=== PATIENT | female | born 2000 | race Two or more races ===

== ENCOUNTER 2025-09-02 21:07 | Emergency (ER) | payer MEDICAID, SELFPAY ==
[2025-09-02 21:09] VITALS: BMI 33.6
[2025-09-02 21:22] VITALS: BP 129/89; PULSE 102; RESP 18; TEMP 36.9; O2SAT 98
--- NOTE | 2025-09-02 21:32 | XR_ITS ---
EXAMINATION: Lumbar spine 2 views TECHNIQUE: AP lateral lumbar spine 2 views Date and time: September 02, 2025, 11:03 p.m. INDICATION: Lower back pain 3 days FINDINGS: Satisfactory alignment lumbar vertebral bodies No lumbar fracture. No significant lumbar disc narrowing IMPRESSION: No lumbar fracture No significant lumbar disc narrowing
--- NOTE | 2025-09-02 21:32 | XR_ITS ---
Examination: Pelvic ultrasound, transabdominal, complete Technique: Transabdominal ultrasound of the pelvis performed using grayscale imaging Date and time of exam: September 02, 2025, 0936 hours INDICATIONS: Intermittent pelvic pain beginning 4 days ago FINDINGS: Uterus 7.6 cm endometrial stripe 0.4 cm No uterine mass or intrauterine gestation Right ovary 3.1 cm arterial flow, 19 x 17 mm follicular cyst Left ovary 3.9 cm arterial flow 23 x 20 mm follicular cyst IMPRESSION: No uterine mass or intrauterine gestation
--- NOTE | 2025-09-02 21:33 | PD.EDRME ---
Rapid Medical Screening Exam RME Arrival date/time: 09/02/25 21:07 This is a case of 25-year-old female who came in in the emergency room due to lower back pain and pelvic pain radiating to the left lateral lower extremities for 3 days worsening of the symptoms this patient decided to start consulted in the emergency room Chief Complaint: Back Pain/Injury Time Seen by Provider: 09/02/25 21:21 Vital signs: Vital Signs Temperature 98.4 F 09/02/25 21:22 Pulse Rate 102 H 09/02/25 21:22 Respiratory Rate 18 09/02/25 21:22 Blood Pressure 129/89 H 09/02/25 21:22 Pulse Oximetry (%) 98 09/02/25 21:22 Oxygen Delivery Method Room Air 09/02/25 21:22 Exam: Moderate tenderness left pelvic area and lumbar area Clinical Impression: Pelvic pain lower back pain
[2025-09-02 22:09] LABS: Basophils # (Auto) 0.1 Thou/mm3 (0.0-0.2); Basophils % (Auto) 1 % (0-2.5); Eosinophils # (Auto) 0.1 Thou/mm3 (0.0-0.5); Eosinophils % (Auto) 1 % (0-10); Hematocrit 39.3 % (36.0-46.0); Hemoglobin 13.1 g/dL (12.0-16.0); Immature Granulocytes Auto 0.05 Thou/mm3 (0.00-0.00); Lymphocytes # (Auto) 3.7 Thou/mm3 (1.0-4.8); Lymphocytes % (Auto) 34 % (10-50); Mean Corpuscular HGB Conc 33.3 g/dl (31.0-37.0); Mean Corpuscular Hemoglobin 27.6 pg (25.0-35.0); Mean Corpuscular Volume 83 fL (80-100); Monocytes # (Auto) 0.5 Thou/mm3 (0.0-0.8); Monocytes % (Auto) 5 % (0-12); Neutrophils # (Auto) 6.3 Thou/mm3 (1.8-7.7); Neutrophils % (Auto) 59 % (37-80); Nucleated Red Blood Cell # 0.00 Thou/mm3 (0.00-0.00); Nucleated Red Blood Cell % 0 /100 WBC (0); Platelet Count 331 Thou/mm3 (140-440); RDW Standard Deviation 38.3 fL (36.4-46.3); Red Blood Count 4.74 Miln/mm3 (4.00-5.20); White Blood Count 10.7 Thou/mm3 (3.6-11.0)
[2025-09-02 22:27] LABS: Alanine Aminotransferase 14 U/L (10-49); Albumin, Serum 4.5 gm/dL (3.5-5.0); Albumin/Globulin Ratio 1.5 (1.2-2.2); Alkaline Phosphatase 76 U/L (46-116); Anion Gap 10 (7-16); Aspartate Amino Transferase 18 U/L (0-34); BUN/Creatinine Ratio 15 Ratio (12-20); Bilirubin,Total 0.3 mg/dL (0.3-1.2); Blood Urea Nitrogen 9 mg/dL (9-23); Calcium 9.4 mg/dL (8.3-10.6); Calcium (Corrected) 9.4 mg/dL (8.5-10.1); Carbon Dioxide 25.5 mMol/L (20.0-31.0); Chloride 106 mMol/L (98-107); Creatinine (Component) 0.6 mg/dL (0.6-1.3); Estimated Creatinine Clearance 149.1 mL/min (>60); Globulin 3.0 gm/dL (2.3-3.5); Glucose 99 mg/dL (74-106); Osmolality,Calculated 279 (275-295); Potassium 3.6 mMol/L (3.4-5.1); Sodium 141 mMol/L (136-145); Total Protein 7.5 gm/dL (5.7-8.2); eGFR > 60 See Note
[2025-09-02 22:39] LABS: Collection Type, Urine Voided
[2025-09-02 22:49] LABS: Bilirubin,Urine Negative (Negative); Blood,Urine 1+ (Negative); Clarity,Urine Clear (Clear/Hazy); Color,Urine Lt-Yellow (Lt Yel-Yel); Glucose, Urine Negative (Negative); HCG Qualitative,Urine Negative; Ketones,Urine Negative (Negative); Leukocyte Esterase,Urine Positive (Negative); Nitrite,Urine Negative (Negative); PH,Urine 6.0 (5.0-7.0); Protein,Urine Negative (Neg - Trace); RBC,Urine 3 /hpf (0-3); Specific Gravity,Urine 1.023 (1.001-1.035); Squamous Epithelial Cell,Urine 5 /hpf (0-5); Urobilinogen,Urine Negative mg/dL (0.0-1.0); WBC,Urine 18 /hpf (0-5)
[2025-09-02 22:51] VITALS: BP 123/82; PULSE 90; RESP 16; TEMP 36.8; O2SAT 97
--- NOTE | 2025-09-02 23:18 | PD.EDABDPN ---
ED Abdominal Pain RME/HPI General Chief Complaint: Abdominal Pain Stated complaint: LOW L BACK PAIN Time seen by provider: 09/02/25 21:21 Arrival date/time: 09/02/25 21:07 RME / HPI RME / HPI narrative: 09/02/25 21:07 This is a case of 25-year-old female who came in in the emergency room due to lower back pain and pelvic pain radiating to the left lateral lower extremities for 3 days worsening of the symptoms this patient decided to start consulted in the emergency room Dr. Matos?s Main ED Evaluation: 25yo female presents to the ED for a chief complaint of pelvic pain x today. No radiation or migration. Patient reports being evaluated by an SANITARY ENGINEERING TEACHER in the past due to having similar pain, but no longer has follow-up due to the SANITARY ENGINEERING TEACHER being out of area. Patient finished her menses on Tuesday. Patient normally take ibuprofen for pain control, but states it did not improve her pain tonight, so she came in for evaluation. Patient denies any fever, chills, N/V, or any other associated symptoms. NKA. Related Data Home Medications ?Medication ?Instructions ?Recorded ?Confirmed cefuroxime axetil 500 mg tablet 500 mg PO BID 01/31/24 01/31/24 hydrocodone 5 mg-acetaminophen 325 1 tab PO Q6H PRN Pain 01/31/24 01/31/24 mg tablet ibuprofen 800 mg tablet 800 mg PO Q8H PRN Pain 01/31/24 01/31/24 Previous Rx's ?Medication ?Instructions ?Recorded acetaminophen 300 mg-codeine 15 mg 1 tab PO Q12H PRN pain #20 tabs 02/01/24 tablet azithromycin 1 gram oral packet 1 g PO .ONCE #1 ea 02/01/24 (Zithromax) acetaminophen 300 mg-codeine 30 mg 1 tab PO BID PRN pain #10 tabs 03/11/24 tablet ondansetron 4 mg disintegrating 4 mg PO Q8H #14 tabs 03/11/24 tablet ibuprofen 800 mg tablet 800 mg PO TID PRN pain #30 tabs 07/13/24 peg 3350-electrolytes 236 240 ml PO Q10M #4,000 mL 07/13/24 gram-22.74 gram-6.74 gram-5.86 gram solution (Golytely) Allergies Allergy/AdvReac Type Severity Reaction Status Date / Time No Known Allergies Allergy Verified 09/02/25 21:13 Review of Systems Review of Systems Systems Reviewed: All systems reviewed, normal except as documented Past Medical History Past Medical History NEUROLOGIC: Negative Neurological Disorders or Seizures CARDIAC: Negative Cardiac Disorders, Congestive Heart Failure, Edema, Cellulitis or Varicose Veins RESPIRATORY: Negative Chronic Obstructive Pulmonary Disease (COPD), Asthma, Tuberculosis, Pulmonary Embolism or Sleep Apnea GASTROINTESTINAL: Positive Gastrointestinal Disorders and Obesity; Negative Hepatitis or Colorectal Cancer GENITOURINARY: Negative Genitourinary Disorders, Renal Disease or Prostate Cancer REPRODUCTIVE: Positive Previous Pregnancies; Negative Breast Cancer, Genital Herpes, Gonorrhea, Pelvic Inflammatory Disease, Syphilis or Testicular Cancer MUSCULOSKELETAL: Negative Musculoskeletal Disorders or Bone Cancer ENDOCRINE: Positive Diabetes Mellitus Type 2; Negative Endocrine Disorders or Diabetes Mellitus Type 1 HEMATOLOGIC: Negative Blood Disorders, Anemia, Leukemia, Hemophilia, Thalassemia, Sickle Cell Disease or Clotting Problems PSYCHO/SOCIAL: Negative Bipolar Disorder, Depression, Anxiety, Depression or Post Traumatic Stress Disorder OTHER HISTORY: Positive Hospitalization; Negative Autoimmune Disease, Down Syndrome, Developmental Delay, Shingles, Falls, Blood Transfusions, Blood Transfusion Reaction, Anesthesia Reactions, Organ Transplant, Chemotherapy, Radiation Therapy, Hyperbaric Therapy, MRSA, VRSA, Vancomycin-Resistant Enterococci, Human Immunodeficiency Virus (HIV), Chicken Pox, Measles, Mumps, Rubella (Citizen Of [place] Measles), Pertussis, Clostridium Difficile, Cancer, Breast Cancer, Cervical Cancer, Colorectal Cancer, Lung Cancer, Ovarian Cancer, Prostate Cancer or Testicular Cancer Family History FAMILY HISTORY: Negative Family Psychiatric Problems, Family Respiratory Disorders, Family Cardiac Disorders, Family Gastrointestinal Problems, Family Cancer, Family Surgery or Family Anesthesia Reaction Surgical History SURGICAL: Negative Pacemaker, Endocrine Surgery, Ear Surgery, Abdominal Surgery, Joint Replacement, Neurologic Surgery, Mastectomy, Section or Organ Transplant Social History SMOKING STATUS: Never smoker SECOND HAND EXPOSURE: No ED Exam Narrative Physical exam: Generally patient is alert and in no obvious distress, heart regular rate and rhythm, lungs clear to auscultation equal bilaterally, abdomen soft bowel sounds present nondistended suprapubic abdominal tenderness without rebound. Course Quality Measures none Orders Category Date Time Status US pelvic complete Stat Exams 09/02/25 21:32 Completed XR lumbar spine 2-3V Stat Exams 09/02/25 21:32 Taken CBC Stat Lab 09/02/25 21:54 Completed CMP [Comprehensive Metabolic Panel] Stat Lab 09/02/25 21:54 Completed HCG Qualitative,Urine Stat Lab 09/02/25 22:28 Completed Urinalysis Stat Lab 09/02/25 22:28 Completed Vital Signs Vital signs: Vital Signs Temperature 98.4 F 09/02/25 21:22 Pulse Rate 102 H 09/02/25 21:22 Respiratory Rate 18 09/02/25 21:22 Blood Pressure 129/89 H 09/02/25 21:22 Pulse Oximetry (%) 98 09/02/25 21:22 Oxygen Delivery Method Room Air 09/02/25 21:22 Abdominal Pain MDM MDM Narrative MDM Narrative:: Scribe Attestation: 09/02/25 - Sagrario Hoang am scribing for and in the presence of Dr. Matos. I interpreted all labs. Urine showed no evidence of infection. is negative. Pelvic ultrasound was unremarkable. Patient has been taking ibuprofen at home for pain. She may also take Tylenol. Patient data External records reviewed:: [facility] previous records (Per chart review, patient was seen here on 07/13/24 for abdominal pain.) Clinical information provided by:: patient Social determinants that could affect healthcare access:: none Patient has the following chronic illnesses:: DM How is presenting disease/condition affected by chronic disease/condition?: uneffected by Evaluation data The following diagnostics were reviewed and interpreted by me:: lab results and radiology exam(s) Lab and/or radiology exams considered but not ordered:: none Interpretation Summary: [facility] Report Signed Patient: DIANNA ELIAS Record#: [id number] Birthdate: 2000 Age/Sex: 25 / F Location: [facility] Attending Dr: Ordering Physician: Johnathan Simpson Date of Service: 09/02/25 Procedure(s): US pelvic complete Accession Number(s): [id number] cc: Cal Mcneal MD; Johnathan Simpson~ Examination: Pelvic ultrasound, transabdominal, complete Technique: Transabdominal ultrasound of the pelvis performed using grayscale imaging Date and time of exam: September 02, 2025, 0936 hours INDICATIONS: Intermittent pelvic pain beginning 4 days ago FINDINGS: Uterus 7.6 cm endometrial stripe 0.4 cm No uterine mass or intrauterine gestation Right ovary 3.1 cm arterial flow, 19 x 17 mm follicular cyst Left ovary 3.9 cm arterial flow 23 x 20 mm follicular cyst IMPRESSION: No uterine mass or intrauterine gestation Dictated By: Cal Mcneal MD Signed By: <Electronically signed by Cal Mcneal MD in OV> 09/02/25 2200 Medications / Prescriptions Medications or Prescriptions considered but not ordered:: none Medication administrations:: see above Consultations Consultation(s) initiated? (list below): No Diagnosis Differential diagnosis abdominal pain: other (See MDM) Most likely diagnosis given after review of the tests above:: see clinical impression below Admission Indicated Admission indicated?: not indicated Admission Request Was there a request for admission?: No Disposition Plan Disposition Plan: Discharge Discharge Attestation Discharge Attestation: The patient and all family members were given an opportunity to ask questions and understood the discharge instructions. Discharge instructions specifically effects, indications for sooner follow up or return to the emergency department, and the expected course of current diagnosis. Patient condition: Stable Discharge Plan Plan Patient Disposition: HOME (Self Care) Prescriptions/Referrals Prescriptions/Med Rec: No Action peg 3350-electrolytes [Golytely] 236-22.74-6.74 -5.86 gram recon soln 240 ml PO Q10M Qty: 4000 0RF Rx Instructions: until fecal effluent is clear ibuprofen 800 mg tablet 800 mg PO TID PRN (Reason: pain) Qty: 30 0RF ibuprofen 800 mg Tablet 800 mg PO Q8H PRN (Reason: Pain) hydrocodone-acetaminophen [[place]] 5-325 mg Tablet 1 tab PO Q6H PRN (Reason: Pain) cefuroxime axetil 500 mg Tablet 500 mg PO BID azithromycin [Zithromax] 1 gram packet 1 g PO .ONCE Qty: 1 0RF acetaminophen-codeine 300-15 mg tablet 1 tab PO Q12H PRN (Reason: pain) Qty: 20 0RF acetaminophen-codeine 300-30 mg tablet 1 tab PO BID PRN (Reason: pain) Qty: 10 0RF ondansetron 4 mg tablet,disintegrating 4 mg PO Q8H Qty: 14 0RF Referrals: Quinn Servin PA-C [Primary Care Provider] - In 1 week Problem List Clinical Impression: Pelvic pain Patient/Caregiver Discharge Instructions Education Materials: ED Pelvic Pain, Unknown Cause Additional Instructions: You may take 650 mg of Tylenol every 4 hours as needed for pain and 800 mg of ibuprofen every 8 hours as needed for pain. Follow-up with your SANITARY ENGINEERING TEACHER physician. Print Language: Nepali Stand Alone Forms: [employer] Award Info., Patient Portal Info Letter
[2025-09-02 23:32] VITALS: BP 123/82; PULSE 88; RESP 18; O2SAT 96
[2025-09-02] MEDS: KETOROLAC INJ 60 MG/2 ML VIAL IM (23:38)
[2025-09-03 00:01] VITALS: BP 105/79; PULSE 87; RESP 20; O2SAT 97
== END 2025-09-03 00:03 | disposition home or self-care (01) ==
PROVIDERS: Nurse Practitioner Family; Emergency Provider Emergency Medicine
DX: R10.22 Pelvic and perineal pain left side (principal); M54.50 Low back pain, unspecified
CPT/HCPCS: 36415; 72100; 76856; 80053; 81001; 81025; 85025; 96372; 99283; J1885

== ENCOUNTER 2025-09-08 20:39 | Emergency (ER) | payer MEDICAID, SELFPAY ==
[2025-09-08 20:42] VITALS: PULSE 110; O2SAT 100; BMI 33.6
[2025-09-08 20:48] VITALS: BP 138/102; PULSE 102; RESP 15; TEMP 36.8; O2SAT 98
--- NOTE | 2025-09-08 21:18 | PD.EDABDPN ---
ED Abdominal Pain RME/HPI General Chief Complaint: Abdominal Pain Stated complaint: ABD PAIN Time seen by provider: 09/08/25 21:24 Arrival date/time: 09/08/25 20:39 Limitations: no limitations RME / HPI RME / HPI narrative: Dr. Santiago's Main ED Evaluation: 25yo female [place] from home presents to the ED for a chief complaint of lower abdominal pain. Patient was seen here last week for the same complaint, reporting her pain has progressively gotten worse. Patient was seen at a facility in [place], had a CT scan done, and was told she had a cyst . Patient states her pain worsened today, so she came in for evaluation. Patient denies any fever, chills, or any other associated symptoms. NKA. Related Data Home Medications ?Medication ?Instructions ?Recorded ?Confirmed cefuroxime axetil 500 mg tablet 500 mg PO BID 01/31/24 01/31/24 hydrocodone 5 mg-acetaminophen 325 1 tab PO Q6H PRN Pain 01/31/24 01/31/24 mg tablet ibuprofen 800 mg tablet 800 mg PO Q8H PRN Pain 01/31/24 01/31/24 Previous Rx's ?Medication ?Instructions ?Recorded acetaminophen 300 mg-codeine 15 mg 1 tab PO Q12H PRN pain #20 tabs 02/01/24 tablet azithromycin 1 gram oral packet 1 g PO .ONCE #1 ea 02/01/24 (Zithromax) acetaminophen 300 mg-codeine 30 mg 1 tab PO BID PRN pain #10 tabs 03/11/24 tablet ondansetron 4 mg disintegrating 4 mg PO Q8H #14 tabs 03/11/24 tablet ibuprofen 800 mg tablet 800 mg PO TID PRN pain #30 tabs 07/13/24 peg 3350-electrolytes 236 240 ml PO Q10M #4,000 mL 07/13/24 gram-22.74 gram-6.74 gram-5.86 gram solution (Golytely) hydrocodone 5 mg-acetaminophen 325 1 tab PO Q8H PRN pain #14 tabs 09/09/25 mg tablet Allergies Allergy/AdvReac Type Severity Reaction Status Date / Time No Known Allergies Allergy Verified 09/08/25 20:47 Review of Systems Review of Systems Systems Reviewed: All systems reviewed, normal except as documented ED Exam General Limitations: Present no limitations General appearance: Present alert and in no apparent distress Head Head exam: Present atraumatic Eye Eye exam: Present normal appearance, PERRL and EOMI ENT ENT exam: Present normal exam, normal oropharynx and mucous membranes moist Neck Neck exam: Present normal inspection, full ROM and trachea midline Chest Chest inspection: Present normal inspection and symmetric chest wall rise Respiratory Respiratory exam: Present normal lung sounds bilaterally Cardiovascular Cardiovascular exam: Present regular rate, normal rhythm and normal heart sounds Abdominal Exam Abdominal exam: Present soft Abdominal tenderness: Present LLQ Extremities Exam Extremities exam: Present normal inspection and full ROM Back Exam Back exam: Present normal inspection and full ROM Neurological Exam Neurological exam: Present alert, oriented X3 and CN II-XII intact Psychiatric Psychiatric exam: Present normal affect and normal mood Skin Skin exam: Present warm, dry, intact and normal color Course Quality Measures none Orders Category Date Time Status CBC Stat Lab 09/08/25 21:25 Completed CMP [Comprehensive Metabolic Panel] Stat Lab 09/08/25 21:25 Completed HCG Qualitative,Urine Stat Lab 09/08/25 00:21 Completed HCG,Qualitative Serum Stat Lab 09/08/25 21:25 Completed Urinalysis Stat Lab 09/09/25 00:00 Completed Acetaminophen Ivpb [Ofirmev Inj] Med 09/08/25 23:38 Discontinued 1,000 mg in 100 ml IV Q6HR HYDROcodone*/APAP 5/325 [[place] 5/325] Med 09/09/25 01:22 Discontinued 2 tab PO Q6HR PRN HYDROmorphone INJ [Dilaudid Inj] Med 09/08/25 22:25 Discontinued 1 mg IVP X1 ONE HYDROmorphone INJ [Dilaudid Inj] Med 09/08/25 22:27 Discontinued 1 mg IVP X1 ONE Ketorolac Inj [Toradol Inj] Med 09/09/25 00:23 Discontinued 30 mg IVP X1 ONE Morphine* Inj Med 09/08/25 21:22 Discontinued 4 mg IVP X1 ONE Ondansetron Inj [Zofran Inj] Med 09/08/25 21:23 Discontinued 4 mg IVP X1 ONE Sodium Chloride 0.9% 1000 ml [Ns] 1,000 ml Med 09/09/25 01:28 Discontinued IV 999 mls/hr Reevaluation(s) Reevaluation #1: Patient is resting comfortably without any distress. Patient is stable to be discharged home. Time: 03:40 Vital Signs Vital signs: Vital Signs Temperature 98.3 F 09/08/25 20:48 Pulse Rate 102 H 09/08/25 20:48 Respiratory Rate 15 09/08/25 20:48 Blood Pressure 138/102 H 09/08/25 20:48 Pulse Oximetry (%) 98 09/08/25 20:48 Oxygen Delivery Method Room Air 09/08/25 20:48 Abdominal Pain MDM MDM Narrative MDM Narrative:: Scribe Attestation: 09/08/25 - Sagrario Hoang am scribing for and in the presence of Dr. Santiago. Patient was seen 24 hours ago at [facility] for similar acute abdominal pain similar to what she has had since 2019. Based on the paperwork that the patient brought with her and I observed she had a urinalysis that showed 4 white cells, RBCs show 2 white cells, trace bacteria, 25 leukocytes, 1+ leukocytes. Negative nitrates, hemoglobin 14/41, sodium 139, potassium 3.9, chloride 106, CO2 26. BUN/creatinine 8/0.46. Hepatitis C negative. Syphilis nonreactive. Lipase -28. MRI pelvis with and without contrast which was compared to a pelvic ultrasound showed 1. hemorrhagic cyst structure measuring approximately 2 cm in diameter on the left without appreciable enhancement on postcontrast imaging cystic structure bordered by uterus and ovary. Favor exophytic hemorrhagic cyst exophytic from the left ovary with possibility of adnexal or uterine lesion not entirely excluded gynecology follow-up recommended along with short interval follow-up transvaginal ultrasound for reassessment. 2. small follicles bilateral ovaries with 2 cm dominant follicle/small follicular cyst left ovary/Small to moderate amount of free fluid in the pelvis cul-de-sac possibly most likely either physiological secondary to recent cyst rupture. Ultrasound of the pelvic non-OB shows uterus size is 8 cm x 6.5 cm x 3.5 cm with heterogeneous appearance cystic complex cystic structure within the lower endometrium likely Tabriz blood products measuring 2.9 x 2.5 x 2.4 cm. Endometrial thickness is 0.6 cm. Right ovary measures 3.7 x 2.9 x 2.7 cm right ovary normal in size and contour and echogenicity right follicular cyst measuring up to 1.8 follicles are present. Left ovary the left ovary measures 2.8 cm x 3.0 cm x 1.2 cm left ovary normal in size and contour next with this today. Left follicular cyst measuring up to 1.7 follicles are present. Cul-de-sac small amount of free fluid. Impression 1. A 2.9 cm complex cystic structure containing fluid level within the left lower endometrium/myometrium junction, indeterminate. Differential degenerating/hemorrhagic fibroid 2. Small amount of free fluid likely physiologic. 3. Dilated tube likely bilateral hide hydrosalpinx On this scan, they recommended an MRI and that was why that was done per the record. This is dictated from a copy that was brought to me from the patient. Based on previous records this patient presents frequently with left lower quadrant tenderness palpation. It appears the patient is likely on her period as well. Medications were given here in the emergency department for pain control. Patient data External records reviewed:: [facility] previous records (Per chart review, patient was seen here on 09/02/25 for pelvic pain.) and EMS form Clinical information provided by:: patient Social determinants that could affect healthcare access:: none Patient has the following chronic illnesses:: DM How is presenting disease/condition affected by chronic disease/condition?: uneffected by Evaluation data The following diagnostics were reviewed and interpreted by me:: lab results Lab and/or radiology exams considered but not ordered:: none Interpretation Summary: WBC 16.3, CMP normal, HCG negative, UA negative for UTI. Medications / Prescriptions Medications or Prescriptions considered but not ordered:: none Medication administrations:: Medication Administration History Discontinued Medications Hydrocodone Bitart/Acetaminophen (Hydrocodone/Apap 5/325 Tablet) 2 tab PO Q6HR PRN PRN Reason: ABDOMINAL CRAMPING Stop: 09/14/25 01:21 Last Admin: 09/09/25 01:48 Dose: 2 tab Documented By: JACKLYN Hydromorphone HCl (Hydromorphone Inj 2 Mg/Ml Vial) 1 mg IVP X1 ONE Stop: 09/08/25 22:26 Last Admin: 09/08/25 22:39 Dose: 1 mg Documented By: JACKLYN Hydromorphone HCl (Hydromorphone Inj 2 Mg/Ml Vial) 1 mg IVP X1 ONE Stop: 09/08/25 22:28 Last Admin: 09/09/25 01:32 Dose: Not Given Documented By: MERLIN Non-Admin Reason: Duplicate Medication on eMAR Acetaminophen (Ofirmev Inj) 1,000 mg in 100 mls @ 250 mls/hr IV Q6HR ANIYAH Stop: 09/09/25 12:23 Last Admin: 09/09/25 01:23 Dose: Not Given Documented By: MERLIN Non-Admin Reason: Duplicate Medication on eMAR Infusion: 09/09/25 01:20 Dose: Infused Documented By: Admin: 09/09/25 00:46 Dose: 250 mls/hr Documented By: JACKLYN Sodium Chloride (Ns) 1,000 mls @ 999 mls/hr IV .Q1H1M ONE Stop: 09/09/25 02:28 Last Infusion: 09/09/25 02:44 Dose: Infused Documented By: Admin: 09/09/25 01:43 Dose: 999 mls/hr Documented By: JACKLYN Ketorolac Tromethamine (Ketorolac Inj 30 Mg/Ml Vial) 30 mg IVP X1 ONE Stop: 09/09/25 00:24 Last Admin: 09/09/25 00:46 Dose: 30 mg Documented By: JACKLYN Morphine Sulfate (Morphine Sulf Inj 4 Mg/Ml Vial) 4 mg IVP X1 ONE Stop: 09/08/25 21:23 Last Admin: 09/08/25 21:32 Dose: 4 mg Documented By: JACKLYN Ondansetron HCl (Ondansetron Inj 2 Mg/Ml Inj 2 Ml) 4 mg IVP X1 ONE; Protocol Stop: 09/08/25 21:24 Last Admin: 09/08/25 21:33 Dose: 4 mg Documented By: JACKLYN see above Consultations Consultation(s) initiated? (list below): No Diagnosis Differential diagnosis abdominal pain: other (ovarian cyst, ovarian torsion, PID) Most likely diagnosis given after review of the tests above:: see clinical impression below Admission Indicated Admission indicated?: not indicated Admission Request Was there a request for admission?: No Disposition Plan Disposition Plan: Discharge Discharge Attestation Discharge Attestation: The patient and all family members were given an opportunity to ask questions and understood the discharge instructions. Discharge instructions specifically effects, indications for sooner follow up or return to the emergency department, and the expected course of current diagnosis. Patient condition: Stable Discharge Plan Plan Patient Disposition: HOME (Self Care) Patient condition on transfer: Stable Prescriptions/Referrals Prescriptions/Med Rec: New hydrocodone-acetaminophen 5-325 mg tablet 1 tab PO Q8H MDD 6 PRN (Reason: pain) Qty: 14 0RF No Action peg 3350-electrolytes [Golytely] 236-22.74-6.74 -5.86 gram recon soln 240 ml PO Q10M Qty: 4000 0RF Rx Instructions: until fecal effluent is clear ibuprofen 800 mg tablet 800 mg PO TID PRN (Reason: pain) Qty: 30 0RF ibuprofen 800 mg Tablet 800 mg PO Q8H PRN (Reason: Pain) hydrocodone-acetaminophen [[place]] 5-325 mg Tablet 1 tab PO Q6H PRN (Reason: Pain) cefuroxime axetil 500 mg Tablet 500 mg PO BID azithromycin [Zithromax] 1 gram packet 1 g PO .ONCE Qty: 1 0RF acetaminophen-codeine 300-15 mg tablet 1 tab PO Q12H PRN (Reason: pain) Qty: 20 0RF acetaminophen-codeine 300-30 mg tablet 1 tab PO BID PRN (Reason: pain) Qty: 10 0RF ondansetron 4 mg tablet,disintegrating 4 mg PO Q8H Qty: 14 0RF Referrals: Claudio Lange MD [Primary Care Provider, Family Practice] - 09/09/25 11:00 am Problem List Clinical Impression: Hemorrhagic cyst, Left sided abdominal pain Patient/Caregiver Discharge Instructions Education Materials: Abdominal Pain Additional Instructions: You was seen yesterday at another facility and your MRI showed that you likely have a hemorrhagic cyst and likely had a ruptured hemorrhagic cyst. This may be causing your pain. Today I do not feel that you need any additional studies. Please return to the emergency department in 24 hours for recheck to see how you are doing.(6PM today). Please take the medications as prescribed. You will need to take a stool softener since the going on narcotics will make you constipated and will make your pain worse. Return sooner For worsening symptoms, or any other concerns. Please let your doctor know that you are requesting to get referral to a corporate staff accountant because you would like a hysterectomy to take out both your ovaries and your uterus because you are tired of having pain. Please express this to your doctor so you can have an educated discussion of what their recommendations are for you. Please go to your 11:00 appointment today. At that time they can give you pain medicines if needed. Print Language: Trinidadian Stand Alone Forms: [employer] Award Info., Patient Portal Info Letter
[2025-09-08] MEDS: MORPHINE SULF INJ 4 MG/ML VIAL IVP (21:32)
[2025-09-08] MEDS: ONDANSETRON INJ 2 MG/ML INJ 2 ML 4 MG IVP (21:33)
[2025-09-08 21:34] LABS: Basophils # (Auto) 0.1 Thou/mm3 (0.0-0.2); Basophils % (Auto) 0 % (0-2.5); Eosinophils # (Auto) 0.0 Thou/mm3 (0.0-0.5); Eosinophils % (Auto) 0 % (0-10); Hematocrit 40.0 % (36.0-46.0); Hemoglobin 13.4 g/dL (12.0-16.0); Immature Granulocytes Auto 0.06 Thou/mm3 (0.00-0.00); Lymphocytes # (Auto) 2.9 Thou/mm3 (1.0-4.8); Lymphocytes % (Auto) 18 % (10-50); Mean Corpuscular HGB Conc 33.5 g/dl (31.0-37.0); Mean Corpuscular Hemoglobin 27.2 pg (25.0-35.0); Mean Corpuscular Volume 81 fL (80-100); Monocytes # (Auto) 0.5 Thou/mm3 (0.0-0.8); Monocytes % (Auto) 3 % (0-12); Neutrophils # (Auto) 12.8 Thou/mm3 (1.8-7.7); Neutrophils % (Auto) 79 % (37-80); Nucleated Red Blood Cell # 0.00 Thou/mm3 (0.00-0.00); Nucleated Red Blood Cell % 0 /100 WBC (0); Platelet Count 430 Thou/mm3 (140-440); RDW Standard Deviation 36.1 fL (36.4-46.3); Red Blood Count 4.93 Miln/mm3 (4.00-5.20); White Blood Count 16.3 Thou/mm3 (3.6-11.0)
[2025-09-08 21:57] LABS: Alanine Aminotransferase 13 U/L (10-49); Albumin, Serum 4.7 gm/dL (3.5-5.0); Albumin/Globulin Ratio 1.4 (1.2-2.2); Alkaline Phosphatase 77 U/L (46-116); Anion Gap 14 (7-16); Aspartate Amino Transferase 15 U/L (0-34); BUN/Creatinine Ratio 12 Ratio (12-20); Bilirubin,Total 0.4 mg/dL (0.3-1.2); Blood Urea Nitrogen 7 mg/dL (9-23); Calcium 9.4 mg/dL (8.3-10.6); Calcium (Corrected) 9.4 mg/dL (8.5-10.1); Carbon Dioxide 22.3 mMol/L (20.0-31.0); Chloride 105 mMol/L (98-107); Creatinine (Component) 0.6 mg/dL (0.6-1.3); Estimated Creatinine Clearance 149.1 mL/min (>60); Globulin 3.3 gm/dL (2.3-3.5); Glucose 114 mg/dL (74-106); Osmolality,Calculated 280 (275-295); Potassium 3.6 mMol/L (3.4-5.1); Sodium 141 mMol/L (136-145); Total Protein 8.0 gm/dL (5.7-8.2); eGFR > 60 See Note
[2025-09-08] MEDS: HYDROmorphone INJ 2 MG/ML VIAL 1 MG IVP (22:39)
[2025-09-08 23:51] LABS: HCG,Qualitative Serum Negative
[2025-09-09 00:02] VITALS: BP 112/79; PULSE 95; RESP 16; TEMP 36.8; O2SAT 96
[2025-09-09 00:20] LABS: HCG Qualitative,Urine Negative
[2025-09-09] MEDS: ACETAMINOPHEN IVPB 1,000 MG/100 ML VIAL 250 MG IV (00:46)
[2025-09-09] MEDS: KETOROLAC INJ 30 MG/ML VIAL IVP (00:46)
[2025-09-09] MEDS: SODIUM CHLORIDE 0.9% 1000 ML 1,000 ML 999 ML IV (01:43)
[2025-09-09 01:44] LABS: Collection Type, Urine Clean Catch
[2025-09-09 01:47] LABS: Bilirubin,Urine Negative (Negative); Blood,Urine Negative (Negative); Clarity,Urine Clear (Clear/Hazy); Color,Urine Lt-Yellow (Lt Yel-Yel); Glucose, Urine Negative (Negative); Hyaline Casts,Urine < 1 /hpf (0-1); Ketones,Urine 1+ (Negative); Leukocyte Esterase,Urine Positive (Negative); Nitrite,Urine Negative (Negative); PH,Urine 7.0 (5.0-7.0); Protein,Urine Negative (Neg - Trace); RBC,Urine 11 /hpf (0-3); Specific Gravity,Urine 1.016 (1.001-1.035); Squamous Epithelial Cell,Urine 4 /hpf (0-5); Urobilinogen,Urine 2.0 mg/dL (0.0-1.0); WBC,Urine 26 /hpf (0-5)
[2025-09-09] MEDS: HYDROcodone/APAP 5/325 TABLET 2 TAB PO (01:48)
[2025-09-09 04:52] VITALS: BP 110/72; PULSE 90; RESP 17; TEMP 36.6; O2SAT 95
== END 2025-09-09 04:55 | disposition home or self-care (01) ==
PROVIDERS: Emergency Provider Emergency Medicine; PCP Family Medicine
DX: N83.02 Follicular cyst of left ovary (principal); N83.01 Follicular cyst of right ovary
CPT/HCPCS: 36415; 80053; 81001; 81025; 84703; 85025; 87086; 96361; 96365; 96375; 99283; J0131; J1171; J1885; J2270; J2405; J7030; A9270

== ENCOUNTER 2025-09-10 09:34 | Emergency (ER) | payer MEDICAID, SELFPAY ==
[2025-09-10 09:58] VITALS: BP 119/77; PULSE 110; RESP 16; TEMP 37.1; O2SAT 98; BMI 33.6
--- NOTE | 2025-09-10 10:04 | XR_ITS ---
Examination: Pelvic ultrasound, transabdominal, complete Technique: Transabdominal ultrasound of the pelvis performed using grayscale imaging Date and time of exam: September 10, 2025, 1013 hours INDICATIONS: Left pelvic pain beginning 2 weeks ago. 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
--- NOTE | 2025-09-10 10:05 | PD.EDRME ---
Rapid Medical Screening Exam E Arrival date/time: 09/10/25 09:34 25-year-old female presents to the emergency department today for complaint of left-sided pelvic pain patient ports no fever nausea or vomiting. Patient has had 2 visits to 2 separate [facility] patient's been here as well as to [facility] patient reports she had a MRI at [facility] as well as ultrasound which showed that the patient had a hemorrhagic cyst per the patient Chief Complaint: Abdominal Pain Vital signs: Vital Signs Temperature 98.8 F 09/10/25 09:58 Pulse Rate 110 H 09/10/25 09:58 Respiratory Rate 16 09/10/25 09:58 Blood Pressure 119/77 09/10/25 09:58 Pulse Oximetry (%) 98 09/10/25 09:58 Oxygen Delivery Method Room Air 09/10/25 09:58 Vital signs reviewed by provider: Yes Exam: On exam patient appears to be in pain Clinical Impression: Lab and imaging ordered
--- NOTE | 2025-09-10 10:34 | XR_ITS ---
Examination: Transvaginal ultrasound of the pelvis, complete Technique: Transvaginal sonographic images pelvis performed using moore scale imaging Exam date and time: September 10, 2025, 1036 hours INDICATIONS: Left pelvic pain beginning 2 weeks ago. 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
--- NOTE | 2025-09-10 10:58 | PC.NURSE ---
CALLED PT TO ASK ABOUT UA BUT THERE WAS NOT ANSWER.
[2025-09-10 11:37] LABS: Collection Type, Urine Clean Catch
[2025-09-10 11:44] LABS: Basophils # (Auto) 0.1 Thou/mm3 (0.0-0.2); Basophils % (Auto) 1 % (0-2.5); Eosinophils # (Auto) 0.0 Thou/mm3 (0.0-0.5); Eosinophils % (Auto) 0 % (0-10); Hematocrit 40.4 % (36.0-46.0); Hemoglobin 13.1 g/dL (12.0-16.0); Immature Granulocytes Auto 0.04 Thou/mm3 (0.00-0.00); Lymphocytes # (Auto) 3.5 Thou/mm3 (1.0-4.8); Lymphocytes % (Auto) 29 % (10-50); Mean Corpuscular HGB Conc 32.4 g/dl (31.0-37.0); Mean Corpuscular Hemoglobin 27.0 pg (25.0-35.0); Mean Corpuscular Volume 83 fL (80-100); Monocytes # (Auto) 0.6 Thou/mm3 (0.0-0.8); Monocytes % (Auto) 5 % (0-12); Neutrophils # (Auto) 7.9 Thou/mm3 (1.8-7.7); Neutrophils % (Auto) 65 % (37-80); Nucleated Red Blood Cell # 0.00 Thou/mm3 (0.00-0.00); Nucleated Red Blood Cell % 0 /100 WBC (0); Platelet Count 426 Thou/mm3 (140-440); RDW Standard Deviation 37.7 fL (36.4-46.3); Red Blood Count 4.86 Miln/mm3 (4.00-5.20); White Blood Count 12.1 Thou/mm3 (3.6-11.0)
[2025-09-10 11:49] LABS: HCG Qualitative,Urine Negative
[2025-09-10 11:59] LABS: Bacteria,Urine Rare; Bilirubin,Urine Negative (Negative); Blood,Urine Negative (Negative); Clarity,Urine Clear (Clear/Hazy); Color,Urine Lt-Yellow (Lt Yel-Yel); Culture Indicated,Urine Not Indicated; Glucose, Urine Negative (Negative); Ketones,Urine 1+ (Negative); Leukocyte Esterase,Urine Positive (Negative); Nitrite,Urine Negative (Negative); PH,Urine 6.5 (5.0-7.0); Protein,Urine Negative (Neg - Trace); RBC,Urine 1 /hpf (0-3); Specific Gravity,Urine 1.010 (1.001-1.035); Squamous Epithelial Cell,Urine 5 /hpf (0-5); Urobilinogen,Urine Negative mg/dL (0.0-1.0); WBC,Urine 3 /hpf (0-5)
[2025-09-10 13:11] LABS: Alanine Aminotransferase 11 U/L (10-49); Albumin, Serum 4.9 gm/dL (3.5-5.0); Albumin/Globulin Ratio 1.5 (1.2-2.2); Alkaline Phosphatase 75 U/L (46-116); Anion Gap 11 (7-16); Aspartate Amino Transferase 12 U/L (0-34); BUN/Creatinine Ratio 8 Ratio (12-20); Bilirubin,Total 0.4 mg/dL (0.3-1.2); Blood Urea Nitrogen 5 mg/dL (9-23); Calcium 9.3 mg/dL (8.3-10.6); Calcium (Corrected) 9.3 mg/dL (8.5-10.1); Carbon Dioxide 27.0 mMol/L (20.0-31.0); Chloride 103 mMol/L (98-107); Creatinine (Component) 0.6 mg/dL (0.6-1.3); Estimated Creatinine Clearance 149.1 mL/min (>60); Globulin 3.3 gm/dL (2.3-3.5); Glucose 90 mg/dL (74-106); Lipase 30 U/L (12-53); Osmolality,Calculated 278 (275-295); Potassium 3.7 mMol/L (3.4-5.1); Sodium 141 mMol/L (136-145); Total Protein 8.2 gm/dL (5.7-8.2); eGFR > 60 See Note
[2025-09-10 14:01] VITALS: BP 99/79; PULSE 87; RESP 19; TEMP 36.9; O2SAT 98
[2025-09-10] MEDS: DICYCLOMINE INJ 10 MG/ML 2ML VIAL IM (14:23)
--- NOTE | 2025-09-10 15:52 | PD.EDABDPN ---
ED Abdominal Pain RME/HPI General Chief Complaint: Abdominal Pain Stated complaint: SEVERE ABD PAIN X 12 DAYS (07/19) Arrival date/time: 09/10/25 09:34 RME / HPI RME / HPI narrative: 09/10/25 09:34 25-year-old female presents to the emergency department today for complaint of left-sided pelvic pain patient ports no fever nausea or vomiting. Patient has had 2 visits to 2 separate ERs patient's been here as well as to [facility] patient reports she had a MRI at [facility] as well as ultrasound which showed that the patient had a hemorrhagic cyst per the patient DR. DORMAN MAIN ED EVALUATION 25 year old female with history of ovarian cysts presents to the ED for evaluation of left-sided lower abdominal pain today. Pain described as aching in sensation, rating 10/10 in severity. Reportedly had been evaluated here once and once at a different ER where she was diagnosed with an ovarian cyst. States her pain is gradually worsened, prompting return today. No new symptoms. Denies fevers, chills, sweats. Exam: On exam patient appears to be in pain Impression: Lab and imaging ordered Related Data Home Medications ?Medication ?Instructions ?Recorded ?Confirmed cefuroxime axetil 500 mg tablet 500 mg PO BID 01/31/24 01/31/24 hydrocodone 5 mg-acetaminophen 325 1 tab PO Q6H PRN Pain 01/31/24 01/31/24 mg tablet ibuprofen 800 mg tablet 800 mg PO Q8H PRN Pain 01/31/24 01/31/24 Previous Rx's ?Medication ?Instructions ?Recorded acetaminophen 300 mg-codeine 15 mg 1 tab PO Q12H PRN pain #20 tabs 02/01/24 tablet azithromycin 1 gram oral packet 1 g PO .ONCE #1 ea 02/01/24 (Zithromax) acetaminophen 300 mg-codeine 30 mg 1 tab PO BID PRN pain #10 tabs 03/11/24 tablet ondansetron 4 mg disintegrating 4 mg PO Q8H #14 tabs 03/11/24 tablet ibuprofen 800 mg tablet 800 mg PO TID PRN pain #30 tabs 07/13/24 peg 3350-electrolytes 236 240 ml PO Q10M #4,000 mL 07/13/24 gram-22.74 gram-6.74 gram-5.86 gram solution (Golytely) hydrocodone 5 mg-acetaminophen 325 1 tab PO Q8H PRN pain #14 tabs 09/09/25 mg tablet dicyclomine 10 mg capsule 10 mg PO TID PRN abdominal pain 09/10/25 #14 caps Allergies Allergy/AdvReac Type Severity Reaction Status Date / Time No Known Allergies Allergy Verified 09/10/25 09:37 Review of Systems Review of Systems Systems Reviewed: All systems reviewed, normal except as documented Past Medical History Past Medical History GASTROINTESTINAL: Positive Gastrointestinal Disorders and Obesity REPRODUCTIVE: Positive Previous Pregnancies ENDOCRINE: Positive Diabetes Mellitus Type 2 Surgical History SURGICAL: Positive Abdominal Surgery (ovaian cysts removed) Social History SMOKING STATUS: Never smoker SECOND HAND EXPOSURE: No ED Exam Narrative Physical exam: GENERAL APPEARANCE: alert and oriented x 4, well-developed, well-nourished, grimacing in pain HEENT: Normocephalic, atraumatic; pupils equal, round, reactive to light; EOMI; mucous membranes pink, moist; oropharynx clear NECK: Supple LUNGS: CTABL; no wheezes, no rales, no rhonchi HEART: Regular rate, regular rhythm; normal S1, S2; no murmurs ABDOMEN: non distended; normal BS; soft, mild left lower quadrant tenderness, no guarding, no rebound; no masses, no organomegaly, no hernia BACK: no CVA tenderness EXTREMITIES: atraumatic; no edema NEUROLOGIC: awake; alert and oriented x4; cranial nerves II-XII grossly intact; no focal sensory or motor deficits PSYCHIATRIC: appropriate mood and affect SKIN: warm, dry, normal color; no rashes Course Quality Measures none Orders Category Date Time Status US pelvic complete Stat Exams 09/10/25 10:04 Completed US transvaginal Stat Exams 09/10/25 10:34 Completed CBC Stat Lab 09/10/25 11:16 Completed Chlamydia/GC/TV - PCR Stat Lab 09/10/25 11:20 Completed Comprehensive Metabolic Panel Stat Lab 09/10/25 11:16 Completed HCG Qualitative,Urine Stat Lab 09/10/25 11:20 Completed Lipase Stat Lab 09/10/25 11:16 Completed UA, C/S IF [Urinalysis, C/S if Indicated] Stat Lab 09/10/25 11:20 Completed Dicyclomine Inj [Bentyl Inj] Med 09/10/25 14:15 Discontinued 10 mg IM X1 ONE Vital Signs Vital signs: Vital Signs Temperature 98.8 F 09/10/25 09:58 Pulse Rate 110 H 09/10/25 09:58 Respiratory Rate 16 09/10/25 09:58 Blood Pressure 119/77 09/10/25 09:58 Pulse Oximetry (%) 98 09/10/25 09:58 Oxygen Delivery Method Room Air 09/10/25 09:58 Pulse ox is 98% on room air which is adequate. Abdominal Pain MDM MDM Narrative MDM Narrative:: Carolann Hoang am scribing for and in the presence of Dr. Dorman. 1550p: I spoke with OBGYN Dr. Patricia. Discussed patients PMHx, HPI, ED course, exam findings, labs, and radiology results. She recommends patient to be scheduled for further treatment on an outpatient basis. Patients pain has improved with pain medication and remains clinically stable throughout the emergency department visit. We reviewed all the results, analysis, and treatment plans. Patient is amenable to discharge. Strict return precautions were outlined. Patient data External records reviewed:: [facility] previous records Clinical information provided by:: patient Social determinants that could affect healthcare access:: none Patient has the following chronic illnesses:: Ovarian cysts How is presenting disease/condition affected by chronic disease/condition?: exacerbated by Evaluation data The following diagnostics were reviewed and interpreted by me:: lab results and radiology exam(s) Lab and/or radiology exams considered but not ordered:: None Interpretation Summary: Ordering Physician: Reji Sanchez NP, NP Date of Service: 09/10/25 Procedure(s): US pelvic complete Accession Number(s): [id number] cc: Reji Sanchez NP, NP; Claudio Lange MD; Cal Mcneal MD~ Examination: Pelvic ultrasound, transabdominal, complete Technique: Transabdominal ultrasound of the pelvis performed using grayscale imaging Date and time of exam: September 10, 2025, 1013 hours INDICATIONS: Left pelvic pain beginning 2 weeks ago. 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 Dictated By: Cal Mcneal MD Signed By: <Electronically signed by aCl Mcneal MD in OV> 09/10/25 1204 Ordering Physician: Edie Dorman MD Date of Service: 09/10/25 Procedure(s): US transvaginal Accession Number(s): [id number] cc: Claudio Lange MD; Cal Mcneal MD; Edie Dorman MD~ Examination: Transvaginal ultrasound of the pelvis, complete Technique: Transvaginal sonographic images pelvis performed using moore scale imaging Exam date and time: September 10, 2025, 1036 hours INDICATIONS: Left pelvic pain beginning 2 weeks ago. 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 Dictated By: Cal Mcneal MD Signed By: <Electronically signed by Cal Mcneal MD in OV> 09/10/25 1138 Medications / Prescriptions Medications or Prescriptions considered but not ordered:: None Medication administrations:: Medication Administration History Discontinued Medications Dicyclomine HCl (Dicyclomine Inj 10 Mg/Ml 2ml Vial) 10 mg IM X1 ONE Stop: 09/10/25 14:16 Last Admin: 09/10/25 14:23 Dose: 10 mg Documented By: RUBENS See above Consultations Consultation(s) initiated? (list below): Yes Consultation #1 (Physician, Specialty, Details): See MDM Diagnosis Differential diagnosis abdominal pain: abdominal pain, calculus of kidney and other (ovarian cyst) Most likely diagnosis given after review of the tests above:: Left sided pelvic pain Endometrial mass Admission Indicated Admission indicated?: not indicated Admission Request Was there a request for admission?: No Disposition Plan Disposition Plan: Discharge Discharge Attestation Discharge Attestation: The patient and all family members were given an opportunity to ask questions and understood the discharge instructions. Discharge instructions specifically effects, indications for sooner follow up or return to the emergency department, and the expected course of current diagnosis. Patient condition: Stable Discharge Plan Plan Patient Disposition: HOME (Self Care) Prescriptions/Referrals Prescriptions/Med Rec: New dicyclomine 10 mg capsule 10 mg PO TID PRN (Reason: abdominal pain) Qty: 14 0RF No Action peg 3350-electrolytes [Golytely] 236-22.74-6.74 -5.86 gram recon soln 240 ml PO Q10M Qty: 4000 0RF Rx Instructions: until fecal effluent is clear ibuprofen 800 mg tablet 800 mg PO TID PRN (Reason: pain) Qty: 30 0RF hydrocodone-acetaminophen 5-325 mg tablet 1 tab PO Q8H MDD 6 PRN (Reason: pain) Qty: 14 0RF ibuprofen 800 mg Tablet 800 mg PO Q8H PRN (Reason: Pain) hydrocodone-acetaminophen [[place]] 5-325 mg Tablet 1 tab PO Q6H PRN (Reason: Pain) cefuroxime axetil 500 mg Tablet 500 mg PO BID azithromycin [Zithromax] 1 gram packet 1 g PO .ONCE Qty: 1 0RF acetaminophen-codeine 300-15 mg tablet 1 tab PO Q12H PRN (Reason: pain) Qty: 20 0RF acetaminophen-codeine 300-30 mg tablet 1 tab PO BID PRN (Reason: pain) Qty: 10 0RF ondansetron 4 mg tablet,disintegrating 4 mg PO Q8H Qty: 14 0RF Referrals: Claudio Lange MD [Primary Care Provider, Family Practice] - In 1 week Naomi (Referring),MD Jair [Referring Provider, CHIEF CREDIT OFFICER] Problem List Clinical Impression: Left-sided pelvic pain, Endometrial mass Patient/Caregiver Discharge Instructions Education Materials: ED Abdominal Pain Unkn Cause Fem, ED Pelvic Pain, Unknown Cause Additional Instructions: Follow up with Dr. Salgado for possible hysteroscopy evaluation of mass in uterus (endometrium) and further evaluation of pelvic pain Print Language: Japanese Stand Alone Forms: [employer] Award Info., Patient Portal Info Letter
--- NOTE | 2025-09-10 16:01 | ESCONSULT_ITS ---
CHIEF SUPPLY CHAIN OFFICER HPI Data of Consult Primary Care Provider: Claudio Lange MD Consult Narrative cc:: cc: Meds Home Medications and Allergies Home Medications ?Medication ?Instructions ?Recorded ?Confirmed ?Type cefuroxime axetil 500 mg tablet 500 mg PO BID 01/31/24 01/31/24 History hydrocodone 5 mg-acetaminophen 325 1 tab PO Q6H PRN Pa in 01/31/24 01/31/24 History mg tablet ibuprofen 800 mg tablet 800 mg PO Q8H PRN Pain 01/3001/31/24 History Allergies Allergy/AdvReac Type Severity Reaction Status Date / Time No Known Allergies Allergy Verified 09/10/25 09:37 Exam - CHIEF SUPPLY CHAIN OFFICER Vital Signs Temp Pulse Resp BP Pulse Ox O2 Del Method 98.4 F 87 19 99/79 98 Room Air 09/10/25 14:01 09/10/25 14:01 09/10/25 14:01 09/10/25 14:01 09/10/25 14:01 09/10/25 14:01 CHIEF SUPPLY CHAIN OFFICER - Results Labs 09/10/25 11:16 09/10/25 11:16 Labs: Short CBC 09/10/25 Range/Units 11:16 WBC 12.1 H (3.6-11.0) Thou/mm3 Hgb 13.1 (12.0-16.0) g/dL Hct 40.4 (36.0-46.0) % Plt Count 426 (140-440) Thou/mm3 BMP 09/10/25 11:16 Sodium 141 Potassium 3.7 Chloride 103 Carbon Dioxide 27.0 BUN 5 L Creatinine 0.6 Glucose 90 Calcium 9.3 Liver Function 09/10/25 Range/Units 11:16 Total Bilirubin 0.4 (0.3-1.2) mg/dL AST 12 (0-34) U/L ALT 11 (10-49) U/L Alkaline Phosphatase 75 (46-116) U/L Albumin 4.9 (3.5-5.0) gm/dL Urine 09/10/25 Range/Units 11:20 Urine Color Lt-Yellow (Lt Yel-Yel) Urine Clarity Clear (Clear/Hazy) Urine pH 6.5 (5.0-7.0) Ur Specific [place] 1.010 (1.001-1.035) Urine Protein Negative (Neg - Trace) Urine Glucose (UA) Negative (Negative) Assessment and Plan Assessment and plan (1) Pelvic pain: Status: Acute Assessment and plan: I discussed Mandy's evaluation with Dr. Dorman. She has a history of chronic pelvic pain. Has had laparoscopy with Dr. Hernandez 02/2024 and had laparoscopic ovarian cystectomy with Dr. Salgado prior to that as well. No evidence of endometriosis on either evaluation. At this time there is note of a 1.8cm endometrial lesion. Patient should follow up with Dr. Salgado at [facility] clinic for discussion of hysteroscopic removal of endometrial lesion and discussion of hormonal regulation to address chronic pelvic pain. She is hemodynamically stable at this time with no evidence of infection. Analilia Patricia MD (1) Pelvic pain Qualifiers: Laterality: unspecified laterality Qualified Code(s): R10.20 - Pelvic and perineal pain unspecified side
[2025-09-10 16:56] VITALS: BP 133/89; PULSE 87; RESP 18; O2SAT 99
[2025-09-11 12:43] LABS: Chlamydia trachomatis PCR Negative (Not Detect); Neisseria Gonorrhoeae DNA PCR Negative (Not Detect); Trichomonas Negative (Negative)
== END 2025-09-10 16:58 | disposition home or self-care (01) ==
PROVIDERS: Nurse Practitioner Primary Care; Emergency Provider Emergency Medicine; PCP Family Medicine
DX: R10.22 Pelvic and perineal pain left side (principal); R19.09 Other intra-abdominal and pelvic swelling, mass and lump
CPT/HCPCS: 36415; 76830; 76856; 80053; 81001; 81025; 83690; 85025; 87491; 87591; 87661; 96372; 99283; J0500

== ENCOUNTER 2025-09-19 15:15 | Outpatient (AMB) | payer MEDICAID, SELFPAY ==
[2025-09-19 15:35] VITALS: BP 111/77; PULSE 104; RESP 20; TEMP 36.7; O2SAT 97; BMI 34.2
--- NOTE | 2025-09-19 15:35 | AMB.GYNCLNOT ---
Vital Signs 09/19/25 15:35 Height 1.6 m Height Method Stated Weight 87.543 kg Weight Measurement Method Standing Scale BMI 34.2 BP 111/77 Blood Pressure Source Automatic Cuff Blood Pressure Location Left Upper Arm Position Sitting Respiration 20 Pulse 104 H Pulse Source Monitor Temp 98.1 F Temp Source Oral Pulse Oximetry (%) 97 Oxygen Delivery Method Room Air Allergies/Home Meds Allergies & Medications Allergies No Known Allergies Allergy (Verified 09/19/25 15:35) Medication Reconciliation relugolix 40 mg-estradiol 1 mg-norethindrone acetate 0.5 mg tablet ([place]) 1 tab PO QDAY 30 days #30 tabs 09/19/25 [Rx] Intake Visit Data Collection New Patient or Established: Established Patient (seen at [facility] within 3 years) Reason for Visit:: REFERRAL OVARIAN CYST Seen by Clinical Staff ONLY (RN/MA): No Drafting Layout Worker Required: No Do You Feel Safe at Home: Yes Authorities Contacted: N/A PCP or OBGYN visit in last 3 months: Yes Hx Now: No Are you currently on any form of Control: Yes Last menstrual period: 08/26/25 Pain Present Currently: No Pain Scale Used: Riojas-Casey/Numerical Pain scale:: 0 Smoking Status Smoking Status: Never smoker Immunizations Flu Vaccine in the Last 12 Months: Yes Flu Vaccine Exclusion Criteria: Already Received Traffic Control Operator history Traffic Control Operator History Menstrual regularity: irregular Flow: normal Monthly: Yes How many days does period last: 5 Age at menarche: 11 Currently sexually active: No OPHTHALMIC TECH: Past Medical History Past Medical History: No Hx Neurological Disorders, No Hx Breast Cancer, No Hx Cardiac Disorders, No Hx Cancer, No Hx Blood Disorders, No Hx Anemia, Yes Hx Gastrointestinal Disorders, No Hx Renal Disease, No Hx Diabetes Mellitus Type 1 and Yes Hx Diabetes Mellitus Type 2 Questionnaires Covid-19 Vaccine Questionnaire Has patient been vacinated for Covid-19 Have you been vacinated for Covid-19: Yes PHQ-9 PHQ-2 Over the last 2 weeks, how often have you been bothered by any of the following problems? 1. Little interest or pleasure in doing things: not at all 2. Feeling down, depressed, or hopeless: not at all Total score: 0 PHQ-9 3. Trouble falling or staying asleep, or sleeping too much: Not at all 4. Feeling tired or having little energy: Not at all 5. Poor appetite or overeating: Not at all 6. Feeling bad about yourself - or that you are a failure or have let yourself or your family down: Not at all 7. Trouble concentrating on things, such as reading the newspaper or watching television: Not at all 8. Moving or speaking so slowly that other people could have noticed? - Or the opposite - being so fidgety or restless that you have been moving around a lot more than usual: not at all 9. Thoughts that you would be better off or of hurting yourself in some way: Not at all Total score: 0 Source: Developed by Drs. Carlos Srivastava, Giovana Jara, Rickey Cifuentes and colleagues, with an educational dev from [employer]. Depression screen completed yes Social History Living Situation History Lives With: Family Housing: House Tobacco History Smoking Status: Never smoker Second Hand Smoke Exposure: No Alcohol History Alcohol Intake: Never Domestic Abuse History Do You Feel Safe at Home: Yes History of Present Illness HPI Narrative Pelvic pain Patient is a 25-year-old presenting with pelvic pain. She has a history of intractable lower abdominal and pelvic pain, having been previously seen on 01-28-2024 for this complaint and admitted for pain management. She was treated prophylactically for suspected pelvic inflammatory disease at that time. The patient has presented to the emergency room multiple times for her pain symptoms and was recently evaluated by an oncologist. She underwent diagnostic laparoscopy which showed no endometriosis, normal ovaries, and negative laparoscopic findings. In 2020, she had bilateral laparoscopic ovarian cystectomy. The patient reports irregular menstrual periods with bleeding lasting from 5 to 10 days. She mentioned having been diagnosed with a bicornuate uterus, though previous surgeries and imaging did not indicate this condition. She is not currently on any medication for endometriosis or pelvic pain. Medical History: - Type 2 diabetes mellitus - Intractable lower abdominal and pelvic pain, hospitalized on 01-28-2024 for pain management - Multiple emergency room visits for pelvic pain Surgical History: - Diagnostic laparoscopy in January 2024 showing no endometriosis, normal ovaries, and negative findings - Bilateral laparoscopic ovarian cystectomy in 2020 Obstetric History: - GPAL: A0 L2 - Two prior vaginal deliveries Diagnostic Test Results and Labs: - MRI of pelvis (09-07-2025): Bladder minimally distended, small to moderate amount of free fluid in the pelvic cul-de-sac, hemorrhagic cystic structure measuring approximately 2 centimeters on the left, and a 2 centimeter dominant follicle - Pelvic ultrasound (09-07-2025): Uterus 8 centimeters by 6.5 by 3.7, complex cystic structure within the lower endometrium, right ovary 3.7 by 2.9 by 2.7 with follicles, left ovary 2.8 by 3 centimeter by 1.2 centimeter. Conclusion: 2.9 centimeter cystic structure containing fluid-fluid level within lower left endometrium myometrial junction indeterminate - Diagnostic laparoscopy (01-28-2024): No endometriosis, normal ovaries, negative laparoscopic findings - Laparoscopic ovarian cystectomy, bilateral (2020) Exam General General Appearance: alert, in no apparent distress and healthy appearing Head Head exam: atraumatic Neck Neck exam: Present normal inspection and trachea midline Chest Chest inspection: Present normal inspection and symmetric chest wall rise External exam: Present normal external exam; Absent tenderness Neuro Neurological exam: Present oriented X3 Psych Psychiatric exam: Present normal affect and normal mood Office Procedures O[facility] Clinic LOC & Office Proc's Nursing/Assessment Patient Status: Established Patient OB Clinic Nursing Assessment: Medication Reconciliation, Update PMH in EMR and Vital Signs OB Clinic Coordination of Care: Complex Care and Chronic Disease 1-5, Consent,records obtained, informed consent, Education Simp Pt/Fam, Lab and Imaging orders, Results/Orders obtained and Staff clarify orders Established Patient Charge Established Patient Point Assignment: 105 Established Patient Point Charge: EP Level 3 (80-115) Assessment & Plan Diagnosis / Problem List (1) Endometriosis: Status: Acute (2) Pelvic and perineal pain bilateral: Status: Acute Plan Pelvic pain Assessment: Patient presents with chronic pelvic pain with previous admission in January 2024 for intractable lower abdominal and pelvic pain. Diagnostic laparoscopy at that time showed no endometriosis, normal ovaries, and negative findings. Recent MRI from 09-07-2025 demonstrates a 2 centimeter hemorrhagic cystic structure on the left ovary and 2 centimeter dominant follicle. Pelvic ultrasound shows a 2.9 centimeter cystic structure containing fluid-fluid level within lower left endometrium myometrial junction. Recent oncology evaluation noted a 1.8 centimeter endometrial lesion. History of bilateral laparoscopic ovarian cystectomy in 2020. Current imaging shows small ovarian cyst likely related to ovulation and cyst in lower uterine segment. Plan: - Hormone or hormone-like blocking agents to suppress estrogen - Avoid further surgical intervention unless necessary - Pain management with ibuprofen and naproxen, avoiding strong pain medicines - 6 months of hormone suppression - Fertility medications to try for following hormone suppression - Consider hysterectomy post-delivery if pain persists - Referral to [facility] for separate ultrasound and MRI to verify bicornuate uterus diagnosis Irregular menstrual bleeding Assessment: Patient reports irregular periods with bleeding lasting 5 to 10 days. Plan: - 6 months of hormone suppression Bicornuate uterus query Assessment: Patient mentioned bicornuate uterus diagnosis, however previous surgeries and imaging did not indicate this finding. Plan: - Referral to [facility] for separate ultrasound and MRI to verify diagnosis
== END 2025-09-19 15:57 | disposition home or self-care (01) ==
LOC: HODSOBC 15:15
PROVIDERS: PCP Family Medicine; Referring Provider Family Medicine; Supervising Provider Obstetrics & Gynecology; Visit Provider Obstetrics & Gynecology
DX: N80.9 Endometriosis, unspecified (principal); N83.202 Unspecified ovarian cyst, left side; N92.6 Irregular menstruation, unspecified; G89.29 Other chronic pain; R10.23 Pelvic and perineal pain bilateral; Q51.3 Bicornate uterus; E11.9 Type 2 diabetes mellitus without complications
CPT/HCPCS: 99213; G0463